=== PATIENT | female | born 1990 | race Caucasian/White ===

== ENCOUNTER 2016-05-29 11:17 | Emergency (ER) | payer BC ==
[~2016-05-29] VITALS: Ht 167.6 cm; Wt 75.5 kg
[2016-05-29 11:19] VITALS: BP 131/76; PULSE 101; RESP 16; TEMP 97.8; O2SAT 97
--- NOTE | 2016-05-29 11:41 | PD ---
HPI Chief Complaint: Injury Time Seen by Provider: 11:39 Travel History International Travel<30 days: No Contact w/Intl Traveler<30days: No Traveled to known affect area: No History of Present Illness HPI Patient is a 25-year-old female who presents emergency department for evaluation of right elbow pain. Patient states she was getting out of her shower and slipped, with her elbow bearing a great deal of her weight subsequently causing her pain with movement and swelling. She states that she has a history of psoriatic arthritis and is on Humira. She states that she has arthritic pain in that elbow normally but her pain is exacerbated since this morning. She denies any numbness or tingling. She rates her pain a 7 out of 10. She describes her pain as aching and throbbing. PFSH Past Medical History Autoimmune Disease: Yes (psoriatic arthritis) ?: Unknown LMP: 03/2016 Social History Alcohol Use: No Tobacco Use: No Substance Use: No Allergies-Medications (Allergen,Severity, Reaction): Coded Allergies: Penicillin (Verified Allergy, Severe, HIVES, 05/29/16) Reported Meds & Prescriptions Reported Meds & Active Scripts Active Reported Humira 2-Pack Inj (Adalimumab 2-Pack Inj) 40 Mg/0.8 Ml Syr 40 Mg SQ Q14D Review of Systems Except as stated in HPI: all other systems reviewed are Neg Musculoskeletal: Positive: Myalgias, Arthralgias, Limited ROM, Edema, Pain Physical Exam Narrative GENERAL: Well-nourished, well-developed patient. SKIN: Warm and dry. HEAD: Normocephalic. EYES: No scleral icterus. No injection or drainage. NECK: Supple, trachea midline. No JVD or lymphadenopathy. CARDIOVASCULAR: Regular rate and rhythm without murmurs, gallops, or rubs. RESPIRATORY: Breath sounds equal bilaterally. No accessory muscle use. GASTROINTESTINAL: Abdomen soft, non-tender, nondistended. MUSCULOSKELETAL: No cyanosis, mild edema noted to the posterior aspect of the right elbow, decreased range of motion with flexion and extension. 4-5 azure architect strength in right hand. Positive radial pulse, brisk less than 3 second capillary refill. BACK: Nontender without obvious deformity. No CVA tenderness. Data Data Last Documented VS Vital Signs Date Time Temp Pulse Resp B/P Pulse Ox O2 Delivery O2 Flow Rate FiO2 05/29/16 11:19 97.8 101 16 131/76 97 Orders Elbow, Complete (4 Vws) (05/29/16 ) [facility] Medical Decision Making Medical Screen Exam Complete: Yes Emergency Medical Condition: Yes Interpretation(s) Vital Signs Date Time Temp Pulse Resp B/P Pulse Ox O2 Delivery O2 Flow Rate FiO2 05/29/16 11:19 97.8 101 16 131/76 97 Differential Diagnosis Muscle strain versus sprain versus fracture versus dislocation versus contusion versus other Narrative Course Patient is a 25 year old female who presented to emergency department for evaluation of right elbow pain after slipping this morning in the shower straining her elbow. Physical examination unremarkable, patient had decreased range of motion. She is neurovascularly intact with no obvious deformities. Patient has a history of psoriatic arthritis and is on Humira. X-ray was ordered to rule out bony abnormality. X-ray was negative of the right elbow. Patient is encouraged to follow-up with her primary doctor. She is encouraged to return to emergency department for any new or worsening symptoms. Patient was further advised to alternate heat and ice to affected area, continue range of motion exercises, take [id number] ibuprofen or acetaminophen as needed and as directed for pain. She verbalized understanding of these instructions. Patient stable for discharge. Diagnosis Primary Impression: Elbow pain, right Referrals: Primary Care Physician Patient Instructions: Elbow Sprain (ED), General Instructions Additional Instructions: Alternate heat and ice to affected area, continue range of motion exercises, take [id number] acetaminophen or ibuprofen as needed and as directed for pain Follow up with your primary doctor Med/Other Pt SpecificInfo: No Change to Meds Disposition: 01 DISCHARGE HOME Condition: Stable Tana Tucker May 29, 2016 11:41
[2016-05-29] MEDS ORDERED: HUMI40KI SQ (11:54)
--- NOTE | 2016-05-29 12:28 | RADRPT ---
EXAM DATE/TIME: 05/29/2016 12:30 [place] COMPARISON: No previous studies available for comparison. INDICATIONS : Right elbow pain after falling out of shower this morning. MEDICAL HISTORY : None. SURGICAL HISTORY : None. ENCOUNTER: Initial ACUITY: 1 day PAIN SCORE: 5/10 LOCATION: Right elbow. FINDINGS: Multiple view examination of the right elbow demonstrates no soft tissue swelling, joint effusion, or fracture. The osseous structures are in normal alignment. Bony mineralization is normal. CONCLUSION: Negative for fracture or dislocation. Followup in 7-10 days is suggested if symptoms persist. Malachi Herzog MD FACR on May 29, 2016 at 12:27 Board Certified Radiologist. This report was verified electronically.
== END 2016-05-29 12:56 | disposition home or self-care (01) ==
LOC: NEPB 11:17
DX: M25.521 Pain in right elbow (principal)
CPT/HCPCS: 73080; 99283